=== PATIENT | male | born 1945 | race Caucasian/White ===

== ENCOUNTER 2021-08-02 13:37 | Inpatient (IN) | payer OTHER ==
[~2021-08-02] VITALS: Ht 182.9 cm; Wt 92.0 kg
[2021-08-02 14:26] LABS: Basophils # (auto) 0 10 ^3/uL (0-0.2); Basophils % (auto) 0.2 % (0.0-2.0); Eosinophils # (auto) 0 10 ^3/uL (0-0.8); Eosinophils % (auto) 0.1 % (0.0-7.0); Hematocrit 36.2 % (41.0-53.0); Hemoglobin 12.4 g/dL (13.5-17.5); Lymphocytes # (auto) 0.4 10 ^3/uL (0.4-5.4); Lymphocytes % (auto) 3.8 % (10.0-50.0); Mean Corpuscular Hgb Conc. 34.2 g/dL (32.0-36.0); Mean Corpuscular Volume 93.7 fL (80.0-100.0); Monocytes # (auto) 0.8 10 ^3/uL (0-1.3); Neutrophils # (auto) 9.9 10 ^3/uL (1.6-8.6); Neutrophils % (auto) 88.9 % (37.0-80.0); Red Blood Cells 3.86 10^6/uL (4.5-5.90); Red Cell Distribution Width 13.2 % (11.8-14.3); White Blood Cell 11.1 10^3/uL (4.4-10.8)
[2021-08-02 14:46] LABS: Albumin 2.9 g/dL (3.4-5.0); Anion Gap 6 (5-15); BUN/Creatinine Ratio 20.2; Blood Urea Nitrogen 22 mg/dL (7-18); Calcium 8.5 mg/dL (8.5-10.1); Carbon Dioxide 24 mmol/L (21-32); Chloride 105 mmol/L (98-107); GFR African American 85 mL/min; GFR Non-African American 70 mL/min; Glucose 113 mg/dL (74-106); Potassium 4.5 mmol/L (3.5-5.1); Sodium 135 mmol/L (136-145)
[2021-08-02 14:49] LABS: Alanine Aminotransferase 183 U/L (16-61); Alkaline Phosphatase 310 U/L (45-117); Aspartate Aminotransferase 142 U/L (15-37); Bilirubin, Total 0.5 mg/dL (0.2-1.0); Total Protein 7.2 g/dL (6.4-8.2)
[2021-08-02 14:54] LABS: INR 1.41 (0.9-1.15); Partial Thromboplastin Time 31.4 sec (23.6-33.0)
[2021-08-02] MEDS ORDERED: IOHEXOL 350 MG/ML 100ML IJ ONE (16:24)
[2021-08-02] MEDS ORDERED: HEPARIN SODIUM (PORCINE) 5000 UNITS/ML 1ML VIAL IV ONE (16:45)
[2021-08-02] MEDS ORDERED: METOPROLOL TARTRATE 1MG/1ML-5ML VIAL IV ONE (17:30)
[2021-08-02] MEDS: HEPARIN DRIP/D5W 100UNITS/ML 250 ML IV SCH (17:55)
[2021-08-02] MEDS ORDERED: NITROGLYCERIN 0.4 MG SL TAB SL PRN (21:00)
[2021-08-02] MEDS ORDERED: ONDANSETRON HCL 4 MG/2 ML VIAL IV PRN (21:00)
[2021-08-02] MEDS ORDERED: ACETAMINOPHEN 325 MG TAB PO PRN (21:00)
[2021-08-02] MEDS ORDERED: MORPHINE SULFATE INJECTION 2 MG/ML SYRG IV PRN ×2 (21:00)
[2021-08-02] MEDS ORDERED: HYDROcodone-ACET 5/325MG TAB PO PRN (21:00)
[2021-08-02] MEDS: METOPROLOL TARTRATE 25 MG TAB PO SCH (22:08)
[2021-08-02 22:50] VITALS: BP 118/73
[2021-08-02 22:55] VITALS: BP 118/75
[2021-08-03 01:09] LABS: INR 1.47 (0.9-1.15); Partial Thromboplastin Time 49.8 sec (23.6-33.0)
[2021-08-03 05:00] VITALS: BP 128/72
[2021-08-03 05:54] LABS: Basophils # (auto) 0 10 ^3/uL (0-0.2); Basophils % (auto) 0.6 % (0.0-2.0); Eosinophils # (auto) 0.1 10 ^3/uL (0-0.8); Eosinophils % (auto) 1.7 % (0.0-7.0); Hematocrit 32.1 % (41.0-53.0); Hemoglobin 11.5 g/dL (13.5-17.5); Lymphocytes # (auto) 0.9 10 ^3/uL (0.4-5.4); Lymphocytes % (auto) 12.4 % (10.0-50.0); Mean Corpuscular Hemoglobin 33.4 pg (28.0-32.0); Mean Corpuscular Hgb Conc. 35.8 g/dL (32.0-36.0); Mean Corpuscular Volume 93.1 fL (80.0-100.0); Monocytes # (auto) 0.8 10 ^3/uL (0-1.3); Neutrophils # (auto) 5.7 10 ^3/uL (1.6-8.6); Neutrophils % (auto) 75.3 % (37.0-80.0); Red Blood Cells 3.45 10^6/uL (4.5-5.90); Red Cell Distribution Width 13.1 % (11.8-14.3); White Blood Cell 7.6 10^3/uL (4.4-10.8)
[2021-08-03 06:17] LABS: Albumin 2.5 g/dL (3.4-5.0); BUN/Creatinine Ratio 19.4; Bilirubin, Total 0.4 mg/dL (0.2-1.0); Calcium 8.6 mg/dL (8.5-10.1); Total Protein 6.4 g/dL (6.4-8.2)
[2021-08-03 06:45] LABS: INR 1.45 (0.9-1.15); Partial Thromboplastin Time 52.7 sec (23.6-33.0)
[2021-08-03] MEDS: HEPARIN DRIP/D5W 100UNITS/ML 250 ML IV SCH (07:40)
[2021-08-03 09:00] VITALS: BP 115/56
[2021-08-03] MEDS ORDERED: ASPirin 81 mg TAB PO SCH (10:00)
[2021-08-03] MEDS: METOPROLOL TARTRATE 25 MG TAB PO SCH ×2 (10:00→23:05)
[2021-08-03] MEDS ORDERED: IODIXANOL 320MG/ML 100ML BTL IV ONE ×2 (11:57→12:56)
[2021-08-03] MEDS ORDERED: LIDOCAINE 2%HCL (LOCAL ANESTH.) INJ 10ml MDV ONE (11:57)
[2021-08-03] MEDS ORDERED: fentaNYL CITRATE 100 MCG/2 ML VL ONE ×2 (12:27→13:09)
[2021-08-03] MEDS ORDERED: ANGIOMAX 250 MG VIAL IV ONE (12:27)
[2021-08-03] MEDS ORDERED: MIDAZOLAM HCL 2MG/2ML 2ml VIAL (1mg/ml) ONE ×2 (12:28→13:09)
[2021-08-03] MEDS ORDERED: SODIUM CHL 0.9% 0 ML ONE (12:28)
[2021-08-03 12:32] LABS: INR 1.37 (0.9-1.15); Partial Thromboplastin Time 43.7 sec (23.6-33.0)
[2021-08-03] MEDS ORDERED: HEPARIN SODIUM (PORCINE) 5000 UNITS/ML 1ML VIAL ONE (12:57)
[2021-08-03 13:00] VITALS: BP 114/73
[2021-08-03] MEDS ORDERED: APIXABAN 5 MG TAB PO ONE (13:45)
[2021-08-03 17:00] VITALS: BP 135/81
[2021-08-03 22:00] VITALS: BP 114/64
[2021-08-03] MEDS: APIXABAN 5 MG TAB PO SCH (23:04)
[2021-08-04] MEDS ORDERED: WARF5TAB71 PO (00:30)
[2021-08-04] MEDS ORDERED: AMLO-489 PO (00:30)
[2021-08-04] MEDS ORDERED: LOSA25TA38 PO (00:30)
[2021-08-04] MEDS ORDERED: TAMS0.4C36 PO (00:30)
[2021-08-04 05:00] VITALS: BP 130/89
[2021-08-04 09:00] VITALS: BP 117/65
[2021-08-04] MEDS: APIXABAN 5 MG TAB PO SCH (09:42)
[2021-08-04] MEDS: METOPROLOL TARTRATE 25 MG TAB PO SCH (09:42)
[2021-08-04 13:00] VITALS: BP 116/75
[2021-08-04] MEDS ORDERED: APIX5TAB OR (15:33)
[2021-08-04 17:00] VITALS: BP 132/62
[2021-08-04 17:25] VITALS: BP 117/65
[2021-08-04] MEDS ORDERED: METOPROLOL TARTRATE 25 MG TAB PO SCH (22:00)
[2021-08-10] MEDS ORDERED: APIXABAN 5 MG TAB PO SCH (22:00)
== END 2021-08-04 19:02 | disposition home health service (06) | DRG 270 ==
LOC: ER 13:37 → TELE 21:00 → TELE-CENTR 22:22
PROVIDERS: ADMIT Nurse Practitioner; ATTEND Nurse Practitioner
PROC: 04CN3ZZ Extirpation of Matter from Left Popliteal Artery, Percutaneous Approach (ICD-10-PCS; principal; 2021-08-04)
PROC: B41GYZZ Fluoroscopy of Left Lower Extremity Arteries using Other Contrast (ICD-10-PCS; 2021-08-04)
DX: I82.412 Acute embolism and thrombosis of left femoral vein (principal); E43 Unspecified severe protein-calorie malnutrition; I48.92 Unspecified atrial flutter; I82.432 Acute embolism and thrombosis of left popliteal vein; D64.9 Anemia, unspecified; I48.0 Paroxysmal atrial fibrillation; I10 Essential (primary) hypertension; N40.0 Benign prostatic hyperplasia without lower urinary tract symptoms; Z20.822 Contact with and (suspected) exposure to COVID-19; R74.01 Elevation of levels of liver transaminase levels; Z79.01 Long term (current) use of anticoagulants; Z86.718 Personal history of other venous thrombosis and embolism; Z88.6 Allergy status to analgesic agent
CPT/HCPCS: 34203; 36415; 71045; 71275; 75710; 80053; 80061; 83735; 83880; 84443; 84484; 85025; 85379; 85610; 85730; 86850; 86900; 86901; 93005; 93306; 93971; 96374; 96375; 99152; G0378; J2001; J2250; Q9967